=== PATIENT | male | born 1960 | race Hispanic/Latino ===

== ENCOUNTER 2019-02-14 08:07 | Inpatient (IN) | payer MEDICAID ==
[2019-02-14] VITALS (21 sets, daily range): BP systolic 93–122; BP diastolic 54–68
[~2019-02-14] VITALS: Ht 167.6 cm; Wt 50.4 kg
[2019-02-14] MEDS ORDERED: IPRATROPIUM/ALBUTEROL SULFATE 3 ML SOLUTION IH ONE (09:01)
[2019-02-14] MEDS ORDERED: ONDANSETRON HCL 4 MG/2 ML VIAL ONE (09:23)
[2019-02-14 09:31] LABS: BASOPHILS % (AUTO) 0.1 % (0.0-5.0); EOSINOPHILS % (AUTO) 0.2 % (0.0-8.0); LYMPHOCYTES % (AUTO) 2.8 % (21.0-51.0); MEAN CORPUSCULAR HEMOGLOBIN 28.2 pg (27.0-33.0); MEAN CORPUSCULAR HGB CONC 32.6 g/dL (32.0-36.0); MEAN CORPUSCULAR VOLUME 86.6 fL (79-99); MONOCYTES % (AUTO) 2.7 % (3.0-13.0); NEUTROPHILS % (AUTO) 94.2 % (40.0-77.0); PLATELET COUNT (AUTO) 82 K/uL (130-400); WHITE BLOOD COUNT (AUTO) 3.4 K/uL (4.8-10.8)
[2019-02-14 09:43] LABS: HEMATOCRIT 19.9 % (42-54)
[2019-02-14 09:44] LABS: INR 1.21 (0.85-1.15); PARTIAL THROMBOPLASTIN TIME 40.6 SEC (26.3-35.5); PROTHROMBIN TIME 12.7 SEC (9.6-11.6)
[2019-02-14 09:51] LABS: ALANINE AMINOTRANSFERASE 14 U/L (12-78); ALBUMIN 1.3 g/dL (3.5-5.0); ASPARTATE AMINOTRANSFERASE 66 U/L (10-37); BILIRUBIN,TOTAL 0.9 mg/dL (0.2-1.0); CARBON DIOXIDE 28 mmol/L (21-32); CHLORIDE 97 mmol/L (101-111); CREATINE KINASE, TOTAL 11 U/L (21-232); CREATININE 0.4 mg/dL (0.5-1.5); GLOMERULAR FILTR. RATE CALC 234 mL/min (>60); GLUCOSE,RANDOM 101 mg/dL (70-105); MYOGLOBIN 16 ng/mL (10-92); SODIUM SERUM 131 mmol/L (136-145); TOTAL PROTEIN, SERUM 4.1 g/dL (6.0-8.3); TROPONIN I < 0.04 ng/mL (0.00-0.06); UREA NITROGEN, BLOOD 15 mg/dL (7-18)
[2019-02-14] MEDS ORDERED: POTASSIUM CHLORIDE 20 MEQ ERTAB PO ONE (10:38)
[2019-02-14] MEDS ORDERED: SULFAMETHOX-TMP DS 800/160 TAB ONE (10:38)
[2019-02-14] MEDS ORDERED: LEVOFLOXACIN 750 MG/D5W 150 ML 150 ML ONE (10:39)
[2019-02-14] MEDS ORDERED: MORPHINE SULFATE 4 MG/1ML SYG ONE (10:40)
[2019-02-14] MEDS ORDERED: PREDNISONE 20 MG TABLET ONE (12:26)
[2019-02-14] MEDS ORDERED: ACETAMINOPHEN 325 MG TAB ONE (14:49)
[2019-02-14] MEDS ORDERED: ACETAMINOPHEN 325 MG TAB PO SCH (15:00)
[2019-02-14] MEDS ORDERED: DIPHENHYDRAMINE HCL 25 MG CAPSULE PO SCH (15:00)
[2019-02-14] MEDS ORDERED: MAG HYDROX/AL HYDROX/SIMETH ES 30 ML SUSP UDCUP PO PRN (15:15)
[2019-02-14] MEDS ORDERED: LACTULOSE 20 GM/30 ML UDCUP PO PRN (15:15)
[2019-02-14] MEDS ORDERED: ACETAMINOPHEN 325 MG TAB PO PRN ×2 (15:15)
[2019-02-14] MEDS: DEXTROSE 5 % AND 0.9 % NACL 1,000 ML IV SCH (15:15)
[2019-02-14] MEDS ORDERED: ONDANSETRON HCL 4 MG/2 ML VIAL IVP PRN (15:15)
[2019-02-14] MEDS ORDERED: GUAIFENESIN-DM 200/20 MG 10 ML PO PRN (15:15)
[2019-02-14] MEDS ORDERED: DiphenhydrAMINE HCL 50 MG/ML VIAL IVP PRN (15:15)
[2019-02-14] MEDS ORDERED: CLONIDINE HCL 0.1 MG TABLET PO PRN (15:15)
[2019-02-14] MEDS ORDERED: DIPHENHYDRAMINE HCL 25 MG CAPSULE PO PRN (15:15)
--- NOTE | 2019-02-14 15:45 | NUR ---
PT WAS RECEIVED FROM ER WITH THE DIAGNOSIS OF PNEUMONIA AND SEVERE ANEMIA. PT IS ONLY 48.9 KG AND APPEARS EMACIATED. PT STATES THAT HE HAS NOT BEEN ABLE TO EAT FOR ABOUT A WEEK AND A HALF. ADVISED DR. CARRASQUILLO OF CONSULT. AWAITING DR. DE OLIVEIRA TO SEE PATIENT AND FOR FURTHER ORDERS. PT HAS IV BOLUS GOING.
[2019-02-14] MEDS ORDERED: PHARMACY COMMUNICATION MISC SCH (16:00)
--- NOTE | 2019-02-14 16:10 | NUR ---
DR. WOODS CALLED IN TO ADVISE NURSING STAFF OF PT TO BE PLACED ON RESPIRATORY ISOLATION FOR POSSIBLE TB. CHARGE NURSE FLORECITA AND UI UX WEB DEVELOPER ADVISED OF THE NEED FOR NEGATIVE PRESSURE ROOM.
[2019-02-14] MEDS: IPRATROPIUM/ALBUTEROL SULFATE 3 ML SOLUTION IH SCH ×2 (18:59→23:14)
[2019-02-14] MEDS ORDERED: SODIUM CHLORIDE 0.9% 250 ML IV ONE (20:33)
[2019-02-14] MEDS: SULFAMETHOX-TMP DS 800/160 TAB PO SCH (20:45)
[2019-02-14] MEDS: FAMOTIDINE 20MG TAB 20 MG TAB PO SCH (21:31)
[2019-02-15 00:18] VITALS: BP 115/70
[2019-02-15] MEDS ORDERED: SODIUM CHLORIDE 3% FOR INHALATION 4 ML/AMP VIAL.NEB IH ONE ×2 (01:58→06:39)
[2019-02-15] MEDS ORDERED: MORPHINE SULFATE 2 MG/ML 1ML SYG IVP PRN (02:15)
[2019-02-15] MEDS ORDERED: MORPHINE SULFATE 2 MG/ML 1ML SYG ONE (02:21)
[2019-02-15] MEDS: DEXTROSE 5 % AND 0.9 % NACL 1,000 ML IV SCH ×2 (02:33→07:15)
[2019-02-15 04:16] VITALS: BP 105/60
[2019-02-15] MEDS: IPRATROPIUM/ALBUTEROL SULFATE 3 ML SOLUTION IH SCH ×2 (06:34→11:09)
[2019-02-15 08:00] VITALS: BP 108/67
--- NOTE | 2019-02-15 08:00 | NUR ---
PT IN ROOM AND GETTING UPSET FOR ANY THINGS . DEMANDING TV CONTROLS .AND WANTED TELE MONITOR OFF . EXPLAIN TO PT OF HIS CARE . PT IS ON AIRBORNE ,ISOLATION TO R.O TB NOTED NO RESP DISTRESS . PT VERY THIN . STATED THAT HE HAS NOT EATEN FOR DAYS AND NO APPETITE . TAKING SM AMT OF BREAKFAST . . REVIEW CALL LIGHT IN REACH..
[2019-02-15 08:33] LABS: HEMATOCRIT 24.7 % (42-54); MEAN CORPUSCULAR HEMOGLOBIN 29.7 pg (27.0-33.0); MEAN CORPUSCULAR VOLUME 87.4 fL (79-99); RED BLOOD CELL COUNT(AUTO) 2.82 MIL/uL (4.50-6.20); RED CELL DISTRIBUTION WIDTH 17.5 % (11.0-15.5); WHITE BLOOD COUNT (AUTO) 2.4 K/uL (4.8-10.8)
[2019-02-15 08:42] LABS: CREATININE 0.4 mg/dL (0.5-1.5); PLATELET COUNT (AUTO) 45 K/uL (130-400); POTASSIUM 3.2 mmol/L (3.5-5.1)
[2019-02-15] MEDS ORDERED: LEVOFLOXACIN 750 MG/D5W 150 ML 150 ML IV SCH (09:00)
[2019-02-15 09:11] LABS: BAND NEUTROPHILS % (MANUAL) 6 % (0-2); MAN.DIFF COMMENT-IMPRESSION MANUAL DIFFERENTIAL; MONOCYTES % (MANUAL) 13 % (2-9); SEGMENTED NEUTROPHILS % 81 % (40-70)
[2019-02-15] MEDS: FAMOTIDINE 20MG TAB 20 MG TAB PO SCH (09:13)
[2019-02-15] MEDS: SULFAMETHOX-TMP DS 800/160 TAB PO SCH (09:14)
[2019-02-15] MEDS ORDERED: DARU1TAB3 PO (09:37)
[2019-02-15] MEDS ORDERED: AUD IH (09:37)
[2019-02-15] MEDS ORDERED: DOLU50TA PO (09:37)
[2019-02-15] MEDS ORDERED: BUDE10.2 IH (09:37)
[2019-02-15] MEDS ORDERED: CLOT10TR MM (09:37)
[2019-02-15 11:00] VITALS: BP 116/73
[2019-02-15 11:25] LABS: APPEARANCE,URINE Clear (CLEAR); BILIRUBIN,URINE Moderate (NEGATIVE); COLOR,URINE Dark Yellow (YELLOW); GLUCOSE, URINE (UA) Negative (NEGATIVE); KETONES,URINE Trace mg/dL (NEGATIVE); LEUKOCYTE ESTERASE ,URINE Trace (NEGATIVE); NITRATE,URINE Positive (NEGATIVE); OCCULT BLOOD,URINE Negative (NEGATIVE); PROTEIN,URINE Trace mg/dL (NEGATIVE)
[2019-02-15] MEDS ORDERED: POTASSIUM CHLORIDE 20MEQ/100ML 100 ML IV PRN (11:45)
[2019-02-15] MEDS ORDERED: POTASSIUM CHLORIDE 10% ELIXIR 20 MEQ/15 ML UDCUP PO PRN (11:45)
[2019-02-15] MEDS ORDERED: SODIUM CHLORIDE 0.9% 1000ML 1,000 ML IV SCH (11:45)
[2019-02-15] MEDS ORDERED: POTASSIUM CHLORIDE 20 MEQ ERTAB PO PRN (11:45)
[2019-02-15] MEDS ORDERED: LIDOCAINE HCL-MPF 1% 2ML VIAL IVP PRN (11:45)
[2019-02-15] MEDS ORDERED: LORAZEPAM 0.5 MG TABLET PO PRN (11:45)
[2019-02-15] MEDS ORDERED: PREDNISONE 20 MG TABLET PO SCH (12:00)
--- NOTE | 2019-02-15 12:19 | NUR ---
PT GOT OUT FROM HIS ROOM. AND WAS CLOSE TO THE ELEVATOR. AND WAS GOING HOME, EXPLAIN PER REPORT OF PT . RIGHT TO GO HOME, BUT NEEDED TO SIGN A FORM . PT AGREE TO GO HOME AGAINST MEDICAL ADVICE. . PT PULL OUT HIS IV FROM LT ARM. IV AND LEFT WITH HIS GIRLFRIEND. SISTER KAROLYN WAS CALLED . LEFT VOICE MAIL . N Elsa FIGUEROA CALL . Addendum: 02/15/19 at 1751 by REMI MELENDEZ RN RN CORRECTION . PT PULL OUT HIS IV FROM HIS RIGHT FORARM. .WITH NO HEMATOMA NOTED .
[2019-02-15 12:30] LABS: BACTERIA,URINE Rare /HPF (None Seen); RBC,URINE 0-1 /HPF (0-1); SQUAMOUS EPITHELIAL CELL,UR Rare /HPF (0-2)
== END 2019-02-15 12:20 | disposition left against medical advice (07) | DRG 893 ==
LOC: EDH 08:07 → 2BH 08:08 → 3AH 22:09
PROVIDERS: ADMIT Family Medicine; ATTEND Family Medicine
PROC: 30233N1 Transfusion of Nonautologous Red Blood Cells into Peripheral Vein, Percutaneous Approach (ICD-10-PCS; principal; 2019-02-14)
DX: B20 Human immunodeficiency virus [HIV] disease (principal); E43 Unspecified severe protein-calorie malnutrition; J18.9 Pneumonia, unspecified organism; R64 Cachexia; J44.0 Chronic obstructive pulmonary disease with (acute) lower respiratory infection; E87.1 Hypo-osmolality and hyponatremia; D64.9 Anemia, unspecified; D72.819 Decreased white blood cell count, unspecified; E87.6 Hypokalemia; Z53.21 Procedure and treatment not carried out due to patient leaving prior to being seen by health care provider; R74.8 Abnormal levels of other serum enzymes; F17.200 Nicotine dependence, unspecified, uncomplicated; F41.9 Anxiety disorder, unspecified; Z91.14 Patient's other noncompliance with medication regimen; Z83.3 Family history of diabetes mellitus; Z82.49 Family history of ischemic heart disease and other diseases of the circulatory system; Z82.3 Family history of stroke
CPT/HCPCS: 36415; 71045; 71250; 80048; 80053; 81001; 82550; 82948; 83605; 83874; 84484; 85025; 85027; 85610; 85730; 86359; 86361; 86850; 86900; 86901; 86922; 87040; 87088; 87116; 87206; 93005; 94640; 94664; 99291; G0378; J1956; J2270; J2405; J7030; J7042; P9016